=== PATIENT | female | born 1965 | race Caucasian/White ===

== ENCOUNTER 2020-10-03 17:30 | Emergency (ER) | payer SELFPAY ==
[2020-10-03 17:31] VITALS: BP 104/65; PULSE 97; RESP 14; TEMP 36.8; O2SAT 96; BMI 29.1
--- NOTE | 2020-10-03 17:42 | ED.VIS.LOWEX ---
HPI History of Present Illness Chief Complaint: Lower Extremity Injury Informant: patient Narrative Narrative: 55-year-old female presents with right ankle pain and injury. She states 1 month ago she sustained a fall while in [place]. She thought that maybe she had sprained her ankle so she has been wrapping it and using a brace. She states that it was getting better but then 1 week ago she started a new job where she is on her feet quite a bit. She states that the ankle continues to hurt and has swelling. She does not have any local providers to see so she came to emergency [facility] Home Medications naproxen 500 mg PO BID #20 tab 10/03/20 [Rx Last Taken Unknown] Allergy/AdvReac Type Severity Reaction Status Date / Time No Known Allergies Allergy Verified 10/03/20 17:31 Social History Smoking Status: Current every day smoker tobacco type: cigarettes ROS ROS ED Constitutional Constitutional ED: Denies chills or weight loss Eyes Eyes: Denies change in vision or diplopia ENT ENT ED: Denies ear pain, rhinorrhea or sore throat Cardiovascular Cardiovascular: Denies chest pain, orthopnea, palpitations or racing heartbeat Respiratory/Chest Respiratory/Chest: Denies cough, dyspnea or orthopnea Gastrointestinal Gastrointestinal: Denies abdominal pain, diarrhea, nausea or vomiting Genitourinary Genitourinary ED: Denies dysuria, hematuria or urinary frequency Musculoskeletal Musculoskeletal: Reports other Details: Right ankle pain and swelling ; Denies arthralgias or myalgias Integumentary Denies abscess or rash Neurologic Neurologic: Denies headache(s) or weakness Psychiatric Psychiatric: Denies anxiety, depression, suicidal ideation or suicidal thoughts Endocrine Endocrinology: Denies polydipsia, polyphagia or polyuria Allergic/Immunologic Allergic/Immunologic ED: Denies mouth swelling, tongue swelling or urticaria EXAM Physical Exam Const Vital Signs: 10/03/20 17:31 Temperature 98.2 F Temperature Source Temporal Pulse Rate 97 Respiratory Rate 14 Blood Pressure 104/65 Blood Pressure Mean 78 Pulse Ox 96 Oxygen Delivery Method Room Air Positive well nourished and well developed General Appearance ED: well developed HEENT Reports normocephalic, head/scalp atraumatic and moist mucous membranes Eyes PERRL and EOMs intact bilaterally Neck no lymphadenopathy, supple and no JVD Resp normal respiratory effort and clear to auscultation bilaterally Cardio regular rate, regular rhythm and no murmurs GI normal to inspection, nondistended, normoactive bowel sounds and non-tender Palpation: soft Back/Spine no CVA tenderness and normal ROM Extremity Extremity Narrative: There is swelling and tenderness over the lateral malleolus. Ligaments do appear stable. Neurovascular intact. General Extremety ED: Yes edema General Extremity: edema Neuro oriented x3 and CN's II-XII intact bilaterally Sensorium / Orientation: alert Motor Exam: strength 5/5 throughout Psych mental status grossly normal Mood & Affect: Negative for depressed or tearful Skin no rashes or lesions noted and no wounds MDM MDM MDM Narrative Medical decision making narrative: My interpretation of the plain films of the right ankle is no acute fracture. Radiology concurs. Patient will be placed in a Aircast. Continued ice elevation and support. Follow-up with podiatry. Radiography Diagnostic Testing: Radiology Impression Ankle X-Ray 10/03/20 17:50 IMPRESSION: No acute bony abnormality. at 1809 Reported and signed by: Mark Tapia MD Electronically Signed: Mark Tapia MD at 18:08 EDT Tel , Service support , Discharge Plan Triage Chief Complaint: Lower Extremity Injury ED Provider: Adolfo Lipscomb Dx/Rx/DC Orders Clinical Impression: Right ankle sprain Instructions: ED Ankle Sprain (Adult) Prescriptions: New naproxen 500 MG tablet 500 mg PO BID Qty: 20 RF: 0 Primary Care Provider: Care Physician,No Primary Referrals: Aletha Mitchell DPM [STAFF PHYSICIAN] - As soon as possible Care Physician,No Primary [Primary Care Provider] - Activity Restrictions/Additional Instructions: I would recommend continued anti-inflammatories. Continued ice and elevation. Wear support. Disposition Disposition: Home, self care
--- NOTE | 2020-10-03 17:50 | RAD_ITS ---
HISTORY: Trauma, ankle injury EXAMINATION/TECHNIQUE: XR Ankle Min 3 Views: COMPARISON: None FINDINGS: BONES/JOINTS: No acute fracture or dislocation. Preservation of the joint spaces. No sclerotic or destructive changes observed. SOFT TISSUES: No soft tissue swelling or gas. No radiopaque foreign body. RAD/Ankle min 3 Views IMPRESSION: No acute bony abnormality. at 1809 Reported and signed by: Mark Tapia MD Electronically Signed: Mark Tapia MD at 18:08 EDT Tel , Service support ,
[2020-10-03 18:27] VITALS: BP 101/65; PULSE 83; RESP 18
== END 2020-10-03 18:29 | disposition home or self-care (01) ==
PROVIDERS: Emergency Provider Emergency Medicine
DX: S93.401A Sprain of unspecified ligament of right ankle, initial encounter (principal); F17.210 Nicotine dependence, cigarettes, uncomplicated; V98.8XXA Other specified transport accidents, initial encounter; Y93.89 Activity, other specified; Y92.89 Other specified places as the place of occurrence of the external cause; Y99.9 Unspecified external cause status
CPT/HCPCS: 73610; 99283

== ENCOUNTER 2020-11-30 18:40 | Emergency (ER) | payer BC, SELFPAY ==
[2020-11-30 18:41] VITALS: BP 98/66; PULSE 112; RESP 16; TEMP 36.9; O2SAT 97; BMI 26.9
--- NOTE | 2020-11-30 19:53 | ED.VIS.LOWEX ---
HPI History of Present Illness Chief Complaint: Lower Extremity Injury Narrative Narrative: 55-year-old female presenting with left leg pain. She states she had a fall about a month ago in which she had bruising on the left lateral thigh. This is resolved and she noticed that she has some pain behind her left knee. This hurts worse when she stands up after sitting for a while. She describes the pain is mostly posterior to the knee. There is no current bruising. She denies any new trauma. She is able to ambulate without difficulty. Denies history of DVT/PE. [facility] Medical History Anxiety Hypothyroidism Home Medications naproxen 500 mg PO BID #20 tab 10/03/20 [Rx Last Taken Unknown] citalopram 40 mg PO DAILY 11/30/20 [History Last Taken Unknown] levothyroxine [Euthyrox] 88 mcg PO DAILY 11/30/20 [History Last Taken Unknown] omeprazole 20 mg PO DAILY 11/30/20 [History Last Taken Unknown] Allergy/AdvReac Type Severity Reaction Status Date / Time No Known Allergies Allergy Verified 11/30/20 18:45 Social History Smoking Status: Current every day smoker tobacco type: cigarettes ROS ROS ED Constitutional Constitutional ED: Denies chills, fever(s) or sweats Eyes Eyes: Denies blurry vision or diplopia ENT ENT ED: Denies rhinorrhea or sore throat Cardiovascular Cardiovascular: Denies chest pain or palpitations Respiratory/Chest Respiratory/Chest: Denies cough or dyspnea Gastrointestinal Gastrointestinal: Denies abdominal pain or nausea Genitourinary Genitourinary ED: Denies dysuria or hematuria Musculoskeletal Musculoskeletal: Reports other Details: Left thigh and posterior knee pain Integumentary Denies abscess or rash Neurologic Neurologic: Denies headache(s) or paresthesias EXAM Physical Exam Const Vital Signs: 11/30/20 18:41 Temperature 98.5 F Temperature Source Temporal Pulse Rate 112 H Respiratory Rate 16 Blood Pressure 98/66 Blood Pressure Mean 76 Pulse Ox 97 Oxygen Delivery Method Room Air Positive well nourished General Appearance ED: NAD HEENT Reports moist mucous membranes normocephalic and atraumatic Extremity full ROM Extremity Narrative: Tenderness palpation posterior to left knee. No obvious swelling or deformity. No bony tenderness. Full range of motion of the left knee in flexion and extension. Extensor mechanism intact. No cords palpated in the left calf. Compartments are soft throughout General Extremety ED: Negative for cyanosis, edema or weight-bearing difficulty General Extremity: Negative for cyanosis, edema or weight-bearing difficulty Neuro oriented x3, CN's II-XII intact bilaterally, moves all extremities and no sensory deficits noted Sensorium / Orientation: alert Motor Exam: strength 5/5 throughout Psych mental status grossly normal Skin Lesions: no lesions Rashes: no rashes MDM MDM MDM Narrative Medical decision making narrative: Patient presenting with right popliteal pain and right distal hamstring pain. Patient denies any injury except for a month ago. She has no history of DVT/PE. Patient had ultrasound performed of the left lower extremity which shows a popliteal cyst. Patient was counseled on findings. Patient is to use compression, ice, alternating Tylenol and ibuprofen at home. Patient will follow up with her primary care to ensure resolution. Today the patient did wish to have a [employer] COVID-19 vaccine. This was given to her. She was monitored afterwards for any signs of acute reaction. She remained stable. She is discharged home in stable condition. Impression: 1. Left knee Forbes's cyst 2. COVID-19 vaccination Radiography Diagnostic Testing: Radiology Impression Venous Duplex 11/30/20 20:20 IMPRESSION: No deep venous embolus. Left popliteal cyst. Electronically Signed: Lio Aguilar MD at 21:55 EDT , Service support , Discharge Plan Triage Chief Complaint: Lower Extremity Injury ED Provider: Murali Villalba Dx/Rx/DC Orders Instructions: ED Forbes's Cyst Prescriptions: No Action naproxen 500 MG tablet 500 mg PO BID Qty: 20 RF: 0 citalopram 40 mg tablet 40 mg PO DAILY RF: 0 levothyroxine [Euthyrox] 88 mcg tablet 88 mcg PO DAILY RF: 0 omeprazole 20 mg capsule,delayed release(DR/EC) 20 mg PO DAILY RF: 0 Primary Care Provider: Care Physician,No Primary Referrals: Fast,Emely, DO [NON-STAFF] - As Needed Care Physician,No Primary [Primary Care Provider] - Disposition Disposition: Home, Self Care Discharge Date/Time: 11/30/20 21:38
--- NOTE | 2020-11-30 20:20 | US_ITS ---
STUDY: VENOUS DOPPLER ULTRASOUND - LEFT LOWER EXTREMITY REASON FOR EXAM: Female, 55 years old. LT POSTERIOR KNEE PAIN - X 1 WEEK TECHNIQUE: Ultrasound evaluation of the deep vein system to include hicks-scale imaging and compression was performed. Hicks-scale imaging and Doppler sonographic evaluation, including duplex spectral analysis and qualitative color flow sonography, was performed. COMPARISON: None. FINDINGS: Common Femoral Vein: Normal compression, spontaneity and augmentation. Normal color Doppler. Common Femoral Vein/Greater Saphenous Junction: Normal compression, spontaneity and augmentation. Normal color Doppler. Deep Femoral Vein: Normal compression, spontaneity and augmentation. Normal color Doppler. Femoral Proximal: Normal compression, spontaneity and augmentation. Normal color Doppler. Femoral Middle: Normal compression, spontaneity and augmentation. Normal color Doppler. Femoral Distal: Normal compression, spontaneity and augmentation. Normal color Doppler. Popliteal Vein: Normal compression, spontaneity and augmentation. Normal color Doppler. Posterior Tibial Vein: Normal compression, spontaneity and augmentation. Normal color Doppler. Peroneal Vein: Normal compression, spontaneity and augmentation. Normal color Doppler. There is no demonstrated deep venous thrombosis. There is 3.9 cm popliteal cyst. US/Venous Duplex Imag/Limited/Uni IMPRESSION: No deep venous embolus. Left popliteal cyst. Electronically Signed: Lio Aguilar MD at 21:55 EDT , Service support ,
[2020-11-30] MEDS: COVID-19 VAC,AD26(JANSSEN)/PF 0.5 ML SYRINGE IM (21:18)
== END 2020-11-30 21:38 | disposition home or self-care (01) ==
PROVIDERS: Emergency Provider Student in an Organized Health Care Education/Training Program
DX: M71.22 Synovial cyst of popliteal space [Baker], left knee (principal); Z23 Encounter for immunization; F41.9 Anxiety disorder, unspecified; E03.9 Hypothyroidism, unspecified; F17.210 Nicotine dependence, cigarettes, uncomplicated; Z79.899 Other long term (current) drug therapy
CPT/HCPCS: 91303; 93971; 99283

== ENCOUNTER 2021-04-19 11:36 | Emergency (ER) | payer BC, SELFPAY ==
[2021-04-19 11:41] VITALS: BP 126/88; PULSE 80; RESP 17; TEMP 35.9; O2SAT 98; BMI 28.5
--- NOTE | 2021-04-19 11:59 | VDLE_ITS ---
Reason For Study: LLE PAIN Procedure LEFT This is a venous duplex using B-mode, color GSV is normal. flow and spectral Doppler. CFV is compressible, spontaneous, phasic, Exam performed in department. competent, and demonstrates normal A preliminary report was called and/or faxed augmentation. to Dr. Lipscomb & ED. FV is compressible, spontaneous, phasic, competent and demonstrates normal augmentation. POP V is compressible, spontaneous, phasic, competent and demonstrates normal augmentation. T/P Trunk is compressible. PTV is compressible. LT PerV is compressible. Non vascular structure noted in left pop fossa space measuring 1.62 x 1.35 in transverse. VL/Venous Duplex US, Unilateral Interpretation Summary There is no evidence of left lower extremity deep vein thrombosis. Left great s aphenous vein appears patent and compressible segmentally. Nonvascular complex 1.62 x 1.35 cm structu re left popliteal space with extension into the proximal calf Ordering Physician: Adolfo Lipscomb Referring Physician: OTD Performed By: Jennifer Ash, BRIE, RVT
--- NOTE | 2021-04-19 12:00 | ED.VIS.LOWEX ---
HPI History of Present Illness Chief Complaint: Lower Extremity Injury Informant: patient Narrative Narrative: 56-year-old female presenting to the emergency room with left lower leg swelling and pain. Symptoms started approximately 3 days ago with some discomfort in the calf and last night she noted swelling. 2 months ago she had an arthroscopic procedure on the left knee through Dr. Landeros. No prior history of DVT PE. Patient denies any cough shortness of breath or chest pain. The patient denies any known injury to the leg. She states she was diagnosed with a Forbes's cyst before. [facility] Medical History Anxiety Hypothyroidism Home Medications naproxen 500 mg PO BID #20 tab 10/03/20 [Rx Last Taken Unknown] citalopram 40 mg PO DAILY 11/30/20 [History Last Taken Unknown] levothyroxine [Euthyrox] 88 mcg PO DAILY 11/30/20 [History Last Taken Unknown] omeprazole 20 mg PO DAILY 11/30/20 [History Last Taken Unknown] Allergy/AdvReac Type Severity Reaction Status Date / Time No Known Allergies Allergy Verified 04/19/21 11:36 Social History (Updated 04/19/21 @ 12:[address] Adolfo Lipscomb DO) Smoking Status: Light Smoker (<10/day) substance use type: does not use ROS ROS ED Constitutional Constitutional ED: Denies chills, fever(s) or weight loss Eyes Eyes: Denies change in vision or diplopia ENT ENT ED: Denies ear pain, rhinorrhea or sore throat Cardiovascular Cardiovascular: Denies chest pain, orthopnea, palpitations or racing heartbeat Respiratory/Chest Respiratory/Chest: Denies cough, dyspnea or orthopnea Gastrointestinal Gastrointestinal: Denies abdominal pain, diarrhea, nausea or vomiting Genitourinary Genitourinary ED: Denies dysuria, hematuria or urinary frequency Musculoskeletal Musculoskeletal: Reports other Details: Left leg pain and swelling ; Denies arthralgias or myalgias Integumentary Denies abscess or rash Neurologic Neurologic: Denies headache(s) or weakness Psychiatric Psychiatric: Denies anxiety, depression, suicidal ideation or suicidal thoughts Endocrine Endocrinology: Denies polydipsia, polyphagia or polyuria Allergic/Immunologic Allergic/Immunologic ED: Denies mouth swelling, tongue swelling or urticaria EXAM Physical Exam Const Vital Signs: 04/19/21 11:41 Temperature 96.6 F L Temperature Source Temporal Pulse Rate 80 Respiratory Rate 17 Blood Pressure 126/88 H Blood Pressure Mean 100 Pulse Ox 98 Oxygen Delivery Method Room Air Positive well nourished and well developed General Appearance ED: well developed HEENT Reports normocephalic, head/scalp atraumatic and moist mucous membranes normocephalic and atraumatic Eyes PERRL and EOMs intact bilaterally Neck no lymphadenopathy, supple and no JVD Resp normal respiratory effort and clear to auscultation bilaterally Cardio regular rate, regular rhythm and no murmurs GI normal to inspection, nondistended, normoactive bowel sounds, non-tender and no masses Auscultation: normoactive bowel sounds Palpation: soft Back/Spine no CVA tenderness and normal ROM Extremity Extremity Narrative: The left calf is tender to palpation. I don't palpate any palpable cords. There is no erythema. There is mild swelling of the leg compared to the right. There is a palpable Forbes's cyst. Neurovascularly intact distal. Good capillary refill. General Extremety ED: Yes edema General Extremity: edema Neuro oriented x3 and CN's II-XII intact bilaterally Sensorium / Orientation: alert Motor Exam: strength 5/5 throughout Psych mental status grossly normal Mood & Affect: Negative for depressed or tearful Skin no rashes or lesions noted and no wounds MDM MDM MDM Narrative Medical decision making narrative: Duplex ultrasound was negative for DVT. Noted Forbes's cyst on the ultrasound. Patient should follow-up with orthopedics return if worsening or concerns Discharge Plan Triage Chief Complaint: Lower Extremity Injury ED Provider: Adolfo Lipscomb Dx/Rx/DC Orders Clinical Impression: Forbes's cyst of knee, Acute leg pain, Left leg swelling Instructions: ED Forbes's Cyst Prescriptions: No Action naproxen 500 MG tablet 500 mg PO BID Qty: 20 RF: 0 citalopram 40 mg tablet 40 mg PO DAILY RF: 0 levothyroxine [Euthyrox] 88 mcg tablet 88 mcg PO DAILY RF: 0 omeprazole 20 mg capsule,delayed release(DR/EC) 20 mg PO DAILY RF: 0 Primary Care Provider: Kenyatta Real NP Referrals: Lio Landeros MD [NON-STAFF] - As soon as possible Kenyatta Real NP, FIRE ALARM INSPECTOR-C [Primary Care Provider] - Disposition Disposition: Home, Self Care
[2021-04-19 13:11] VITALS: RESP 16
== END 2021-04-19 13:11 | disposition home or self-care (01) ==
PROVIDERS: Emergency Provider Emergency Medicine; PCP Nurse Practitioner Primary Care
DX: M71.22 Synovial cyst of popliteal space [Baker], left knee (principal); F41.9 Anxiety disorder, unspecified; E03.9 Hypothyroidism, unspecified; Z79.899 Other long term (current) drug therapy; Z79.890 Hormone replacement therapy; F17.200 Nicotine dependence, unspecified, uncomplicated
CPT/HCPCS: 93971; 99282

== ENCOUNTER 2024-02-04 07:28 | Emergency (ER) | payer BC, SELFPAY ==
[2024-02-04 07:28] VITALS: BP 112/92; PULSE 120; RESP 20; TEMP 36.4; O2SAT 97; BMI 25.9
--- NOTE | 2024-02-04 07:38 | EX.ED.VIS.UR ---
HPI HPI - URI History of Present Illness Chief Complaint: Cold Sx Informant: patient Onset/Context/Timing Onset: Days Context: Gradual Onset Timing: Continuous Current Severity: Moderate Maximum Severity: Moderate Associated Symptoms Associated Symptoms: Positive for Nasal Congestion, Headache, Myalgias, Nausea, Vomiting and Nonproductive cough Narrative Narrative: 59-year-old female history of hypothyroidism. On Saturday started getting subjective fever and chills. No documented temperature. Intermittent headaches. Nonproductive cough. Yesterday had some mild nausea and vomiting. No diarrhea. No dysuria. Prior similar symptoms: Yes Recent Illness/Hospitalization: No ROS ROS ED ROS Narrative Nonproductive cough. Subjective fever and chills. Nausea and vomiting. Constitutional Constitutional ED: Reports chills and fever(s) Eyes Eyes: Denies blurry vision ENT ENT ED: Denies ear pain Cardiovascular Cardiovascular: Denies chest pain Respiratory/Chest Respiratory/Chest: Reports cough; Denies dyspnea Gastrointestinal Gastrointestinal: Reports nausea and vomiting; Denies abdominal pain, constipation, diarrhea or melena Genitourinary Genitourinary ED: Denies dysuria or hematuria Musculoskeletal Musculoskeletal: Denies arthralgias Integumentary Denies abscess Neurologic Neurologic: Reports headache(s) Psychiatric Psychiatric: Denies anxiety Endocrine Endocrinology: Denies cold intolerance Hematologic/Lymphatic Hematologic/Lymphatic: Denies easy bleeding Allergic/Immunologic Allergic/Immunologic ED: Denies mouth swelling [facility] Medical History Anxiety Hypothyroidism Home Medications ?Medication ?Instructions ?Recorded ?Last Taken ?Type naproxen 500 mg tablet 500 mg PO BID #20 tabs 10/03/20 Unknown Rx citalopram 40 mg tablet 40 mg PO DAILY 11/30/20 Unknown History levothyroxine 88 mcg tablet 88 mcg PO DAILY 11/30/20 Unknown History (Euthyrox) omeprazole 20 mg capsule,delayed 20 mg PO DAILY 11/30/20 Unknown History release Allergy/AdvReac Type Severity Reaction Status Date / Time No Known Allergies Allergy Verified 02/04/24 07:31 Social History Smoking Status: Light Smoker (<10/day) substance use type: does not use EXAM Physical Exam Narrative Exam Narrative: Patient 9-year-old female vital signs are stable afebrile. Pulse ox 97% on room air no hypoxia. H EENT exam pupils round reactive light. Moist mucous membranes. Posterior pharynx unremarkable. Neck nontender no lymphadenopathy. Lungs clear to auscultation bilaterally. No rales, rhonchi or wheezing. Coarse breath sounds. Heart tachycardic 110 no murmur. Chest wall ribs nontender. Abdomen soft nontender. Back nontender. Moving all 4 extremities. Calves are nontender without edema or cords. Neurologically she is awake and alert no focal motor deficits. Const Vital Signs: 02/04/24 07:28 02/04/24 07:59 Temperature 97.6 F L Temperature Source Temporal Pulse Rate 120 H Respiratory Rate 20 H Respiratory Effort Normal Non-Labored Respiratory Pattern Normal Blood Pressure 112/92 H Blood Pressure Mean 98 Pulse Ox 97 Oxygen Delivery Method Room Air Positive well nourished and well developed; Negative for obese, cachectic or contractures General Appearance ED: well developed and NAD; Negative for cachectic, contractures, cyanotic, diaphoretic or pallor Nutritional Appearance: Negative for cachectic or obese HEENT Reports moist mucous membranes normocephalic and atraumatic; Negative for scalp tenderness Face and Sinus: Negative for sinus tenderness Teeth and Gingiva: Negative for caries Throat: posterior oropharynx normal Eyes PERRL and EOMs intact bilaterally General Eye ED: Negative for pale conjunctiva or scleral icterus Neck no lymphadenopathy, supple, no meningeal signs and no JVD General: Negative for anterior neck swelling Resp normal respiratory effort and clear to auscultation bilaterally Effort and Inspection: Negative for retractions Auscultation: Negative for rales, rhonchi, wheezes or diminished lung sounds Cardio S1 normal heart sound, S2 normal heart sound and no murmurs Rate: tachycardic; Negative for regular rate or bradycardia Rhythm: regular rhythm; Negative for abnormal rhythm GI non-tender, non-distended and no masses Inspection: Negative for abdominal distention Auscultation: normoactive bowel sounds Palpation: soft; Negative for tender, guarding or mass Back/Spine no CVA tenderness and normal ROM General Back: Negative for CVA tenderness Cervical Spine: Negative for cervical spine tenderness Thoracic Spine / Upper Back: Negative for thoracic spinal tenderness Lumbar Spine / Lower Back: Negative for lumbar spinal tenderness Sacrum: Negative for tenderness Extremity normal to inspection and full ROM General Extremety ED: Negative for cyanosis or tenderness General Extremity: Negative for cyanosis Neuro oriented x3 and CN's II-XII intact bilaterally Sensorium / Orientation: alert, oriented to person, oriented to place and oriented to time; Negative for orientation impaired, lethargic or stuporous Motor Exam: strength 5/5 throughout Psych mental status grossly normal Appearance: Negative for other Attitude: No agitated Mood & Affect: Negative for depressed, anxious or tearful Skin General Skin Exam: Negative for jaundice or pallor Lesions: no lesions Rashes: no rashes Trauma: Negative for abrasion or laceration MDM MDM MDM Narrative Medical decision making narrative: 59-year-old female URI symptoms suspect viral URI possibly COVID. She and I discussed COVID testing it was deferred at this time. She understands it would not change our therapy. We are obtaining a chest x-ray to rule out pneumonia. Clinically I do not hear pneumonia. She will be given ibuprofen. Repeat exam patient is doing well at 8:15 AM. We discussed her chest x-ray results. She will be treated as a viral syndrome. Follow-up as needed return if worse. History & Record Review Discussion w/independent historian: Patient and Family Radiography Chest X-Ray - ED: 2 View and Read by ED Physician Diagnostic Testing: Chest x-ray, 2 views, AP and lateral, interpreted by myself shows Discharge Plan Triage Chief Complaint: Cold Sx Other Complaint: Headache ED Provider: Jordi Valladares Dx/Rx/DC Orders Clinical Impression: Viral syndrome Instructions: ED Viral Syndrome (Adult) Prescriptions: No Action naproxen 500 MG tablet 500 mg PO BID Qty: 20 0RF citalopram 40 mg tablet 40 mg PO DAILY Patient Comments: TAKE 1 TABLET BY MOUTH ONCE DAILY levothyroxine [Euthyrox] 88 mcg tablet 88 mcg PO DAILY Patient Comments: TAKE 1 TABLET BY MOUTH ONCE DAILY omeprazole 20 mg capsule,delayed release(DR/EC) 20 mg PO DAILY Patient Comments: TAKE 1 CAPSULE BY MOUTH ONCE DAILY NEEDED Primary Care Provider: Kenyatta Real NP Referrals: PodlogKenyatta guerrero NP, ALTERNATIVE EDUCATION TEACHER-C [Primary Care Provider] - 1 Week if not improving Activity Restrictions/Additional Instructions: Plenty of fluids and rest. Alternate Tylenol Motrin for body aches and fever. Follow-up with your primary care provider if not improving. Most likely this is a virus. Could be COVID. Should progressively improve over the next week if not follow-up if feeling a lot worse return to the emergency department. Print Language: Bhutanese Disposition Disposition: Home, Self Care
[2024-02-04] MEDS: Ibuprofen 600 MG Tablet PO (07:56)
--- NOTE | 2024-02-04 08:00 | RAD_ITS ---
STUDY: X-RAY CHEST REASON FOR EXAM: Female, 59 years old. Cough and headaches. TECHNIQUE: PA and lateral views of the chest. COMPARISON: None. FINDINGS: The lungs are clear and expanded. There is no demonstrated pleural abnormality. Normal size heart. Calcified right paratracheal and azygos lymph nodes. Normal visualized pulmonary arteries. Normal visualized aortic arch and descending thoracic aorta. Normal visualized thoracic spine. Normal visualized ribs, clavicles, and shoulders. There is no demonstrated abnormality of the visualized soft tissue structures of the upper abdomen. RAD/Chest PA and Lateral IMPRESSION: No acute abnormality is seen. Electronically Signed: Michael Erickson MD at 8:17 EDT ,
[2024-02-04 08:26] VITALS: PULSE 108; RESP 20; TEMP 36.4; O2SAT 92
== END 2024-02-04 08:26 | disposition home or self-care (01) ==
LOC: ED 07:54
PROVIDERS: Emergency Provider Emergency Medicine; PCP Nurse Practitioner Primary Care; Visit Provider Emergency Medicine
DX: B34.9 Viral infection, unspecified (principal); R11.2 Nausea with vomiting, unspecified; R51.9 Headache, unspecified; E03.9 Hypothyroidism, unspecified
CPT/HCPCS: 71046; 99283